=== PATIENT | male | born 1995 ===

== ENCOUNTER 2021-04-24 13:36 | Emergency (ER) | payer OTHER ==
[~2021-04-24] VITALS: Ht 175.3 cm; Wt 74.8 kg
--- NOTE | 2021-04-24 13:47 | NUR ---
PT IS IN ROOM #2B. DR MEI EVALUATED THE PT.
--- NOTE | 2021-04-24 15:31 | NUR ---
PT WAS EVALUATED BY DR MEI. PT IS O'K TO BOOK WITH [employer]. PT LEFT HOSPITAL ER WITH [employer] OFFICERS.
[2021-04-24 15:39] VITALS: BP 131/74
== END 2021-04-24 15:41 ==
LOC: ER 13:39
DX: S02.832A Fracture of medial orbital wall, left side, initial encounter for closed fracture (principal); S06.9X0A Unspecified intracranial injury without loss of consciousness, initial encounter; Y35.93XA Legal intervention, means unspecified, suspect injured, initial encounter; Y92.143 Cell of prison as the place of occurrence of the external cause; Z20.822 Contact with and (suspected) exposure to COVID-19
CPT/HCPCS: 70450; 70486; A4663